=== PATIENT | female | born 1990 | race Caucasian/White ===

== ENCOUNTER 2020-11-22 09:05 | Emergency (ER) | payer BC ==
[~2020-11-22] VITALS: Ht 172.7 cm; Wt 120.2 kg
[2020-11-22] MEDS ORDERED: DUPIXENT300 MG/2 M (09:17)
[2020-11-22] MEDS ORDERED: AUGMENTIN125 MG/5 M (09:18)
[2020-11-22] MEDS ORDERED: METHYLPREDNISOLO8 MG PO (09:18)
[2020-11-22] MEDS ORDERED: MEDROLPACK PO (15:09)
== END 2020-11-22 16:22 | disposition home or self-care (01) ==
LOC: ER 09:05
DX: G51.9 Disorder of facial nerve, unspecified (principal)